=== PATIENT | male | born 1995 | race Caucasian/White ===

== ENCOUNTER 2020-10-17 06:27 | Emergency (ER) | payer MEDICAID, SELFPAY ==
[2020-10-17 06:29] VITALS: BP 165/110
[2020-10-17 06:40] VITALS: BP 202/133; PULSE 92; RESP 14; TEMP 36.7; O2SAT 99; BMI 38.2
--- NOTE | 2020-10-17 06:55 | XR_ITS ---
PROCEDURE: XR CHEST AP CLINICAL HISTORY: fall Posttraumatic pain COMPARISON: No exams were available for comparison FINDINGS: The cardiomediastinal silhouette and pulmonary vascularity are within normal limits. The lungs are clear without infiltrates, suspicious nodules, or pleural effusions. No acute bony abnormalities. IMPRESSION: No acute findings. Dictated by: Marvin Longo MD 10/17/2020 08:02 Marvin Longo MD in [facility] 10/17/2020 08:02
--- NOTE | 2020-10-17 06:55 | XR_ITS ---
PROCEDURE: XR PELVIS 1-2V CLINICAL INDICATION: fall Pain COMPARISON: No exams were available for comparison TECHNIQUE: XR Pelvis AP View FINDINGS: No fracture or dislocation is evident. No significant degenerative change. No lytic or blastic change. IMPRESSION: No acute findings. Dictated by: Marvin Longo MD 10/17/2020 08:03 Marvin Longo MD in [facility] 10/17/2020 08:03
--- NOTE | 2020-10-17 06:55 | CT_ITS ---
PROCEDURE: CT CERVICAL SPINE WO CON CLINICAL INDICATION: fall Neck injury with pain, contusion/abrasion or hematoma, cervical sprain/strain the COMPARISON: No exams were available for comparison TECHNIQUE: Axial images obtained with sagittal and coronal reformats. All CT scans at the facility use one or more dose reduction, viz: automated exposure control, ma/kV adjustment per patient size (including targeted exams where dose is matched to indication, i.e. head), or iterative reconstruction technique. Axial spiral CT scanning performed of the cervical spine beginning at the base of the skull and continuing to the upper T-spine. 3-D multiplanar reconstruction with 3-D manipulation of volumetric data set in image rendering was completed by the radiologist and/or technologist with the supervision of the radiologist on independent workstation. FINDINGS: Normal alignment. No fracture or dislocation. Lung apices are clear. Scattered small nodes are present in the neck. There is straightening of the cervical lordosis. IMPRESSION: Cervical spine intact with no fracture nor subluxation. Dictated by: Marvin Longo MD 10/17/2020 08:02 Marvin Longo MD in [facility] 10/17/2020 08:02
--- NOTE | 2020-10-17 06:55 | CT_ITS ---
PROCEDURE: CT HEAD/BRAIN WO CON CLINICAL INDICATION: fall Head injury with headache/pain, contusion, abrasion or hematoma COMPARISON: No exams were available for comparison TECHNIQUE: Axial images obtained. All CT scans at the facility use one or more dose reduction, viz: automated exposure control, ma/kV adjustment per patient size (including targeted exams where dose is matched to indication, i.e. head), or iterative reconstruction technique. FINDINGS: No midline shift, mass effect, intracranial hemorrhage, hydrocephalus, or extra-axial fluid collection is evident. Mild soft tissue swelling noted in the left occipital region of the scalp. The calvarium has an unremarkable appearance. No mastoid effusion. No sinus air-fluid level. IMPRESSION: No acute intracranial finding Dictated by: Marvin Longo MD 10/17/2020 07:59 Marvin Longo MD in [facility] 10/17/2020 07:59
[2020-10-17 07:04] LABS: Basophils # 0.1 K/mm3 (0-0.2); Basophils % 1.7 % (0.1-2.0); Chloride 104 mmol/L (98-107); Eosinophils # 0.4 K/mm3 (0.0-0.4); Eosinophils % 5.1 % (0.1-12.0); Hematocrit 51.6 % (42.0-52.0); Hemoglobin 16.8 g/dL (14.1-18.0); Lymphocytes # 2.3 K/mm3 (0.7-4.5); Lymphocytes % 31.3 % (10-50); Mean Corpuscular HGB Conc 32.6 g/dL (31.8-35.4); Mean Corpuscular Hemoglobin 30.9 pg (27.0-31.2); Mean Corpuscular Volume 94.7 fl (80-94); Mean Platelet Volume 7.8 fl (7.4-10.4); Monocytes # 0.4 K/mm3 (0.1-1.0); Monocytes % 5.7 % (1.7-9.3); Neutrophils # 4.2 K/mm3 (1.8-7.8); Neutrophils % 56.3 % (37.0-80.0); Platelet Count 227 K/mm3 (142-424); Potassium 4.3 mmoL/L (3.5-5.1); Red Blood Count 5.45 M/mm3 (4.60-6.20); Red Cell Distribution Width 13.2 % (11.5-17.5); Sodium 142 mmol/L (136-145); White Blood Count 7.5 K/mm3 (4.8-10.8)
[2020-10-17 07:06] LABS: Blood Urea Nitrogen 9 mg/dl (9-20); Creatinine Clearance Estimated 229 mL/min (50-200); Estimated Glomerular Filt Rate 101 ml/min (>60); GFR (African American) 122 ML/MIN (>60)
[2020-10-17 07:07] LABS: Alanine Aminotransferase 18 U/L (12-78); Albumin Level 4.7 g/dl (3.5-5.0); Albumin/Globulin Ratio 1.5 (1.1-1.8); Alkaline Phosphatase 71 U/L (38-126); Anion Gap 9.3 mEq/L (5-15); Aspartate Amino Transferase 25 U/L (17-59); Bilirubin,Total 0.6 mg/dl (0.2-1.3); Calcium 9.9 mg/dl (8.4-10.2); Carbon Dioxide 33 mmol/L (22.0-30.0); Globulin 3.2 g/dL (1.3-3.2); Glucose 94 mg/dl (74-100); Total Protein,Serum 7.9 g/dl (6.3-8.2)
[2020-10-17 07:12] LABS: C-Reactive Protein 0.8 mg/L (0-4)
[2020-10-17 07:27] LABS: Procalcitonin 0.033 ng/mL (0.0-2.0)
[2020-10-17 07:51] VITALS: BP 168/101; PULSE 70; RESP 20; O2SAT 99
[2020-10-17 07:51] LABS: Erythrocyte Sedimentation Rate 4 mm/hr (0-15)
--- NOTE | 2020-10-17 08:02 | [facility].EDFALL ---
ED Disposition Clinical Impression: Postconcussive syndrome Disposition: Home, Self-Care Condition on Discharge: Good Instructions: How to Prevent Falls Referrals: Antonia Mccormack [Primary Care Provider] - 3 days - Critical Care Critical Care Time: No Attestation: On 10/17/20, the high probability of a clinically significant, sudden or life threatening deterioration of the following system(s) required my full and direct attention, intervention and personal management. The time I documented below is in addition to time spent performing reported procedures but includes the following listed in this critical care notation. Medical Decision Making - Medical Records Medical records reviewed: Yes: I reviewed the patient's medical records. - Mayank Inquiry Pt receiving controlled substance: No Mayank was queried for this patient: No Vital Signs: 10/17/20 06:29 10/17/20 06:40 10/17/20 07:51 Temperature 98.1 F Temperature Source Oral Pulse Rate [Right] 92 H 70 Respiratory Rate 14 20 Blood Pressure [Right Arm] 165/110 H 202/133 H 168/101 H Blood Pressure Mean [Right Arm] 128 156 123 Blood Pressure Source [Right Arm] Manual Cuff/ Auscultation Automatic Cuff Blood Pressure Position [Right Arm] Sitting 02 Sat by Pulse Oximetry 99 99 Oxygen Delivery Method Room Air - Lab Data Lab results reviewed: Yes: I reviewed the patient's lab results. Lab Results 10/17/20 06:43: WBC 7.5, RBC 5.45, Hgb 16.8, Hct 51.6, MCV 94.7 H, MCH 30.9, MCHC 32.6, RDW 13.2, Plt Count 227, MPV 7.8, Neut % (Auto) 56.3, Lymph % (Auto) 31.3, [place] % (Auto) 5.7, Eos % (Auto) 5.1, Baso % (Auto) 1.7, Neut # (Auto) 4.2, Lymph # (Auto) 2.3, [place] # (Auto) 0.4, Eos # (Auto) 0.4, Baso # (Auto) 0.1, ESR 4 10/17/20 06:43: Sodium 142, Potassium 4.3, Chloride 104, Carbon Dioxide 33 H, Anion Gap 9.3, BUN 9, Creatinine 0.90, Estimated Creat Clear 229, Estimated GFR 101, Est GFR ( Amer) 122, Glucose 94, Calcium 9.9, Total Bilirubin 0.6, AST 25, ALT 18, Alkaline Phosphatase 71, C-Reactive Protein 0.8, Total Protein 7.9, Albumin 4.7, Globulin 3.2, Albumin/Globulin Ratio 1.5, Procalcitonin 0.033 Result diagrams: 10/17/20 06:43 10/17/20 06:43 Orders (Tests/Meds): ED MEDICATIONS Discontinued Medications Generic Name Dose Route Start Last Admin Trade Name Freq PRN Reason Stop Dose Admin Sodium Chloride 1,000 mls @ 999 mls/hr 10/17/20 07:00 10/17/20 06:59 Sod Chlor 0.9% 1000ml Bag IV 10/17/20 08:00 999 mls/hr .Q1H1M THOM Administration Ketorolac Tromethamine 30 mg 10/17/20 06:55 10/17/20 06:59 Ketorolac 30mg/Ml Vial IV 10/17/20 06:56 30 mg ONCE ONE Administration Methylprednisolone Sodium Succinate 125 mg 10/17/20 06:55 10/17/20 06:59 Methylprednisolone Sod Succ 125mg Vial IV 10/17/20 06:56 125 mg ONCE ONE Administration ORDERS Category Date Time Status XR chest AP Stat Exams 10/17/20 06:55 Ordered - Radiology Data #1 Image(s): Chest Image Reviewed: Yes I reviewed the patient's radiology results, Yes I reviewed the patient's radiology image Preliminary Findings: Normal/NAD #2 Image(s): Pelvis Image Reviewed: Yes I reviewed the patient's radiology results, Yes I reviewed the patient's radiology image Preliminary Findings: Normal/NAD - CT Data CT Scan: Head, C-Spine Time Received: 07:[address] Reviewed: Yes: I have reviewed the patient's CT results, I have viewed the radiologist's interpretation Preliminary Findings: Normal/NAD Medical Decision Narrative: 25yo M that I inherited at shift change. Patient work-up was completed prior to my arrival. My physical exam is unremarkable. Patient is in no acute distress. All findings discussed with the patient at bedside. Patient is most likely suffering from concussive syndrome. Discussed avoidance of bright lights, loud noises, strenuous activity. Patient understands he needs to take anti-inflammatories and stay well-hydrated. He is
[2020-10-17 08:11] VITALS: BP 160/97; PULSE 82; RESP 18; O2SAT 99
[2020-10-17 08:25] VITALS: BP 151/83; PULSE 72; RESP 20; TEMP 36.8; O2SAT 98
== END 2020-10-17 08:28 | disposition home or self-care (01) ==
PROVIDERS: Emergency Provider Emergency Medicine; PCP Nurse Practitioner Family
DX: F07.81 Postconcussional syndrome (principal); W10.9XXA Fall (on) (from) unspecified stairs and steps, initial encounter; W00.0XXA Fall on same level due to ice and snow, initial encounter; Y92.018 Other place in single-family (private) house as the place of occurrence of the external cause; F17.210 Nicotine dependence, cigarettes, uncomplicated
CPT/HCPCS: 70450; 71045; 72125; 72170; 80053; 84145; 85025; 85651; 86140; 96374; 96375; 99283